=== PATIENT | female | born 1955 | race Caucasian/White ===

== ENCOUNTER → 2016-11-16 | Outpatient (CLI) | payer OTHER | LOC: BMCIMAGING 10:41 | DX: Z12.31 Encounter for screening mammogram for malignant neoplasm of breast (principal); Z80.3 Family history of malignant neoplasm of breast | CPT/HCPCS: G0202 ==

== ENCOUNTER → 2017-05-08 | Outpatient (CLI) | payer OTHER | LOC: BMCIMAGING 16:33 | PROVIDERS: ATTEND Internal Medicine | DX: R00.0 Tachycardia, unspecified (principal) ==

== ENCOUNTER 2017-10-07 11:14 | Observation (INO) | payer OTHER ==
[2017-10-07] MEDS ORDERED: NS 1,000 ML IV ONE (11:21)
--- NOTE | 2017-10-07 11:32 | PDGENHP ---
History & Physical Chief Complaint: symptomatic svt History of Present Illness: symptomatic svt Relevant Physical Exam: [id number] Cardiorespiratory Assessment: symptomatic svt for ablation
--- NOTE | 2017-10-07 11:39 | CPEKG ---
Heart Rate: 75 RR Interval: 800 P-R Interval: 172 QRSD Interval: 88 QT Interval: 408 QTC Interval: 456 P [place]: 9 QRS [place]: -68 T Wave [place]: 57 EKG Severity - ABNORMAL ECG - EKG Impression: SINUS RHYTHM EKG Impression: LEFT ANTERIOR FASCICULAR BLOCK Electronically Signed By: Heraclio Rodriguez 07-Oct-2017 12:59:47
[2017-10-07 11:51] LABS: PLATELET COUNT 354 10^3/uL (150-400)
[2017-10-07 12:00] LABS: INR 0.97 (0.83-1.16); PROTIME(PATIENT) 13.1 SEC (12.0-15.0)
[2017-10-07] MEDS ORDERED: fentaNYL 100 MCG/2 ML INJ IVP PRN (13:14)
[2017-10-07] MEDS ORDERED: ONDANSETRON 4 MG/2 ML VIAL IVP PRN ×2 (13:14→16:06)
[2017-10-07] MEDS ORDERED: NALOXONE HCL 0.4 MG/ML INJ IVP PRN (13:14)
[2017-10-07] MEDS ORDERED: ACETAMINOPHEN 500 MG TAB PO PRN (13:14)
--- NOTE | 2017-10-07 13:14 | PDANEPAE ---
ANE History of Present Illness EP Study ANE Past Medical History - Pulmonary History Hx Sleep Apnea: No ANE Review of Systems Review of Systems: ANE Patient History - Allergies Allergies/Adverse Reactions: No Known Allergies Allergy (Unverified 10/07/17 11:21) - Home Medications Home Medications: Cholecalciferol Vit D3 [Vitamin D3 (*)] 1,000 units PO DAILY 10/05/17 [Last Taken Unknown] Herbals/Supplements -Info Only 1 ea PO DAILY 10/05/17 [Last Taken Unknown] Multivitamins [Multivitamin (*)] 1 each PO DAILY 10/05/17 [Last Taken Unknown] - Smoking Hx Smoking Status: Former smoker ANE Labs/Vital Signs - Labs Result Diagrams: 10/07/17 11:35 10/07/17 11:35 - Vital Signs Height: 162.56 cm Weight: 94.347 kg ANE Physical Exam - Airway Neck exam: FROM Mallampati Score: Class 2 Mouth exam: normal dental/mouth exam - Pulmonary Pulmonary: clear to auscultation - Cardiovascular Cardiovascular: regular rate and rhythym - ASA Status ASA Status: II ANE Anesthesia Plan Anesthesia Plan: general endotracheal anesthesia
[2017-10-07] MEDS ORDERED: ISOPROTERENOL HCL/D5W 0.2 MG/50 ML BAG IV ONE (13:19)
[2017-10-07] MEDS ORDERED: LIDOCAINE 1% 300 MG/30 ML SDV ONE (13:19)
[2017-10-07] MEDS ORDERED: HEPARIN 10,000 UNIT/10 ML MDV (1,000 UNIT/ML) ONE (13:19)
[2017-10-07] MEDS ORDERED: PROPOFOL/EMULSION 500 MG/50 ML BOTTLE IV ONE ×5 (13:28→14:58)
[2017-10-07] MEDS ORDERED: ROCURONIUM 50 MG/5 ML VIAL ONE ×3 (13:32→15:34)
[2017-10-07] MEDS ORDERED: fentaNYL 100 MCG/2 ML INJ ONE (15:33)
[2017-10-07] MEDS ORDERED: ISOPROTERENOL HCL 0.2 MG/ML 5ML AMP ONE (15:45)
[2017-10-07] MEDS ORDERED: SUGAMMADEX SODIUM 200 MG/2 ML VIAL IVP ONE (15:54)
[2017-10-07] MEDS ORDERED: ONDANSETRON 4 MG/2 ML VIAL ONE (15:56)
[2017-10-07] MEDS ORDERED: DEXAMETHASONE 4 MG/ML VIAL ONE (15:56)
[2017-10-07] MEDS ORDERED: PROTAMINE SULFATE 50 MG/5 ML VIAL IVP ONE (16:01)
[2017-10-07] MEDS ORDERED: ACETAMINOPHEN 325 MG TAB PO PRN (16:06)
--- NOTE | 2017-10-07 16:06 | EPPROC ---
Electrophysiology Procedure Note: ELECTROPHYSIOLOGIC STUDY AND CATHETER MEDIATED ABLATION OF FOCAL ATRIAL TACHYCARDIA PROCEDURES PERFORMED: 1. EP evaluation with RA/RV/LA pace/record, with arrhythmia induction 2. EP evaluation with RA/RV pace record, insert/reposition catheter, with arrhythmia induction 3. Intracardiac catheter ablation, SVT arrhythmogenic focus 4. 3D mapping 5. Fluoroscopy INDICATION: Recurrent SVT with presyncope Catheters and anesthesia: The patient arrived in the Electrophysiology Laboratory in the fasting state. The right clavicular region, right groin, and left groin area were prepped and draped in the usual sterile manner. Anesthesiologist Dr. Nael Velasquez administered general anesthesia. Appropriate non-invasive blood pressure, pulse oximetry and end-tidal CO2 monitoring was established. All catheters were placed percutaneously using the modified Seldinger technique , and advanced into position under fluoroscopic guidance. One #7 Canadian Garrett catheter was advanced to the His-bundle position via the left femoral vein (2mm spacing; except the proximal ring which was 25cm from the tip used for unipolar recordings). One #7 [place] deflectable catheter with 10 pairs of electrodes was placed via the left femoral vein into the coronary sinus. Programmed stimulation was performed from the right atrium, left atrium ( coronary sinus) and right ventricle. Parahisian pacing demonstrated all retrograde conduction over the AV node Heparin was administered to keep ACT > 200 seconds. There was no antegrade slow AV nicola pathway conduction. Programmed stimulation of right atrium during infusion of isoproterenol 1-2 mcg/ min induced an atrial tachycardia, CL was variable 350-390 ms. AV dissociation was induced with ventricular overdrive pacing confirming atrial tachycardia. High resolution mapping of the atrial tachycardia was done using Pentaray catheter. Following this, a #7 [place] mapping catheter was introduced into the right atrium and used for mapping AT . SR0 sheath was used. A 3D mapping system (Intrakr) was used. A detailed 3D map of the right atrium and coronary sinus showed earliest atrial activation along the superior aspect of the ela terminalis. Earliest atrial activation began 35 ms before the onset of the P wave with a negative deflection in the unipolar electrogram. RF applications were delivered to this site. This accelerated and then terminated tachycardia. Prior to ablation, pacing at high output was performed to rule out phrenic nerve stimulation. Programmed stimulation in the baseline state and during infusion of isoproterenol 1, 2 and 4 mcg/min post ablation was performed. No tachycardia could be induced. The catheters were removed. Vascular access sheaths were removed in the EP lab after pursestring suture was applied. The patient was transferred to the cardiovascular holding area in stable condition. There were no apparent complications. CONCLUSIONS: 1. Focal atrial tachycardia arising from the superior aspect of the Ela terminalis. 2. Successful ablation of focal atrial tachycardia. 3. No apparent complications. Patient Problems: Problems Problem Status Onset Supraventricular tachycardia Acute
--- NOTE | 2017-10-07 16:12 | POSTANESTH ---
Post Anesthetic Evaluation Cardiovascular Status: Normal, Stable Respiratory Status: Normal, Stable Level of Consciousness/Mental Status: Can Participate in Eval, Alert and Oriented Pain Control: Adequate, Prn Tx Ordered Nausea/Vomiting Control: Adequate, Prn Tx Ordered Complications Possibly Related to Anesthesia: None Noted
--- NOTE | 2017-10-07 16:26 | CPEKG ---
Heart Rate: 82 RR Interval: 732 P-R Interval: 204 QRSD Interval: 90 QT Interval: 396 QTC Interval: 463 P [place]: 62 QRS [place]: -47 T Wave [place]: 44 EKG Severity - ABNORMAL ECG - EKG Impression: SINUS RHYTHM EKG Impression: LAD, CONSIDER LEFT ANTERIOR FASCICULAR BLOCK Electronically Signed By: Heraclio Rodriguez 08-Oct-2017 08:40:28
[2017-10-08 04:24] LABS: PLATELET COUNT 334 10^3/uL (150-400)
[2017-10-08 04:37] LABS: CREATINE KINASE 66 IU/L (0-156)
[2017-10-08 04:43] LABS: INR 1.05 (0.83-1.16); PROTIME(PATIENT) 13.9 SEC (12.0-15.0)
--- NOTE | 2017-10-08 08:44 | CPEKG ---
Heart Rate: 68 RR Interval: 882 P-R Interval: 204 QRSD Interval: 90 QT Interval: 416 QTC Interval: 443 P [place]: -2 QRS [place]: -50 T Wave [place]: 41 EKG Severity - ABNORMAL ECG - EKG Impression: SINUS RHYTHM EKG Impression: LAD, CONSIDER LEFT ANTERIOR FASCICULAR BLOCK Electronically Signed By: Heraclio Rodriguez 08-Oct-2017 12:46:37
[2017-10-08] MEDS ORDERED: ASPIRIN 81 MG CHEWABLE TAB PO SCH (09:00)
--- NOTE | 2017-10-08 09:31 | ASMTCMCOM ---
CM Note CM Note Notes: 10/08/2017 Case Management Note Reviewed chart. There are no case management d/c needs identified dt/ pt age, marital status, employment status and activity levels prior to admission. There are no PT or OT evals ordered at this time. Case Management d/c poc: Anticipating Independent with follow up as directed. Case Management available if needs change. Date Signed: 10/08/2017 09:30 AM Electronically Signed By:Corrine Ann RN
--- NOTE | 2017-10-08 10:26 | ECHO ---
[email or web address] [address] [address] Main: [phone] Fax: Transthoracic Echocardiogram Name: JOSELITO ACOSTA MR#: [id number] Study Date: 10/08/2017 Study Time: 07:57 AM Date of : 1955 Age: 62 year(s) Height: 162.6 cm (64 in.) Weight: 94.35 kg (208 lb.) BSA: 1.99 m2 Gender: Female Examination: Echo Indication: F/U post EP study Image Quality: Contrast: Requested by: Heraclio Rodriguez BP: 129 mmHg/79 mmHg Heart Rate: Rhythm: Indication: F/U post EP study Procedure Staff Clinic Lpn: Kell León RDCS Reading Physician: Heraclio Rodriguez Requesting Provider: Conclusions: Normal size left ventricle. Mild concentric LV hypertrophy. Normal global systolic LV function. The left atrium is mildly dilated. Mild tricuspid regurgitation is present. Measurements: Chambers Valvular Assessment AV/MV Valvular Assessment TV/PV Normal Normal Normal Name Value Range Name Value Range Name Value Range Ao Laurita (2D): 3.2 cm (1.4 cm-2.6 AV meanP mmHg ( - ) cm) MV E Vmax: 0.95 m/s ( - ) IVSd (2D): 0.9 cm (0.6 cm-1.1 MV A Vmax: 1.08 m/s ( - ) cm) MV E/A: 0.88 ( - ) LVDd (2D): 5.0 cm (3.9 cm-5.3 cm) LVDs (2D): 2.8 cm (2.1 cm-4 cm) LVPWd (2D): 0.9 cm ( - ) LVEF (MOD4): 73 % (>=55 %) EF Range: 65-70 % Continued Measurements: Chambers Valvular Assessment AV/MV Name Value Name Value LADs: 3.4 cm MV E' Septal: 0.09 m/s LADs Lon.7 cm MV E/E' Septal: 10.80 LA Area: 24.4 cm2 MV E/E' Lateral: 11.70 Patient: JOSELITO ACOSTA Study Date: 10/08/2017 Page 1 of 2 07:57 AM Findings: Left Ventricle: Normal size left ventricle. Mild concentric LV hypertrophy. Normal global systolic LV function. The ejection fraction is estimated to be 65-70 %. No regional wall motion abnormality. Right Ventricle: Normal size right ventricle. Left Atrium: The left atrium is mildly dilated. Right Atrium: The right atrium is normal in size. Mitral Valve: The mitral valve is normal in appearance and function. Trivial mitral valve regurgitation. Aortic Valve: The aortic valve is normal in appearance and function. The aortic valve is tri-leaflet. Tricuspid Valve: The tricuspid valve is normal in appearance and function. Mild tricuspid regurgitation is present. Pulmonic Valve: The pulmonic valve is normal in appearance and function. Aorta: The aorta is normal. Pericardium: No pericardial effusion. (No Signature Object) Patient: JOSELITO ACOSTA Study Date: 10/08/2017 Page 2 of 2 07:57 AM [id number]
[2017-10-08 11:20] VITALS: BP 100/65; PULSE 73; RESP 12; TEMP 98.2; O2SAT 96
--- NOTE | 2017-10-08 12:36 | ASMTLACE ---
LACE Length of stay for Answers: Less than 1 day current admission Acuity / Level of Answers: No Care: Did the patient have an inpatient admission? # of Emergency department Answers: 0 visits in the last 6 months Date Signed: 10/08/2017 12:36 PM Electronically Signed By:Corrine Ann RN
--- NOTE | 2017-10-08 13:13 | GDS ---
[f rep st] DISCHARGE SUMMARY ADMISSION DIAGNOSIS: Supraventricular tachycardia, symptomatic. DISCHARGE DIAGNOSES: 1. Atrial tachycardia. 2. Successful ablation of focal atrial tachycardia. PROCEDURES PERFORMED: 1. Electrocardiogram. 2. Electrophysiology study, which identified a focal atrial tachycardia arising from the superior as pect of the ela terminalis. 3. Successful ablation of focal atrial tachycardia. 4. Echocardiogram. BRIEF HISTORY: Please see H and P. Briefly, the patient is a 62-year-old female who has recurrent s upraventricular tachycardia with associated presyncope. Her primary bellhop is Dr. Polanco. This was noted off a ZIO monitor. Was noted to rates as high as 182 beats per minute between 5 and 25 sec onds. Patient was referred to Dr. Rodriguez, evaluated patient and previous studies, discussed options and treatments, including medication therapy versus ablation, patient decided to undergo electrophysiolo gy study for further evaluation. HOSPITAL COURSE: Patient was admitted to CVC, prepped for procedure, and taken to the electrophysiol ogy suite. There, Dr. Rodriguez performed electrophysiology study on her. He did identify a focal atrial tachycardia arising from the superior aspect of the ela terminalis. At that point, he switched to ablation, in which he was successfully able to ablate the atrial tachycardia. No complications. Everardo austin was transferred back to the CVC, and ultimately to the PCU for overnight observation. Througho ut the night, she has been maintaining sinus rhythm with occasional premature ventricular contraction . No other malignant arrhythmias or pauses noted. She has been up and walking the unit without any difficulties. She denies any chest pain, shortness of breath. Does report occasional "skipped beat" during PVC. PHYSICAL EXAMINATION: GENERAL APPEARANCE: Today, medium built, mildly obese, female. She is alert, oriented to person, place, time, and situation. Appears to be under no acute distress. C URRENT VITAL SIGNS: Blood pressure of 100/65, heart rate is 73, respirations 12, saturation 96%, tem perature 36.8 degrees Celsius. HEENT: Head is normocephalic, lips and tongue are pink and moist wit h no signs of cyanosis, conjunctivae pink. NECK: Trachea is midline, +2 carotid pulses bilateral, n o auscultated bruits, no jugular vein distention. RESPIRATORY: Lungs clear to auscultation, no rhon chi, rales or wheezes, no accessory muscle use, no intercostal muscle retraction noted. CARDIAC: Re gular rate, regular rhythm, S1, S2, no S3, S4, gallops, rubs or murmur noted. ABDOMEN: Soft, nonten brayden, bowel sounds x4 quadrants, no organomegaly, no palpable masses. SKIN: [place], warm, dry, no cyan osis, no clubbing, no peripheral edema. VASCULAR: +2 carotids bilateral, +2 radials bilateral, +2 d orsal pedal and posterior tibial pulses bilateral. Catheter insertion site, bilateral groin sites, n o redness, swelling, drainage, or bleeding noted at either site, mild ecchymosis around right access site, quarter to 50 cent size. No auscultated bruit noted over either site. LABORATORY STUDIES: Laboratory studies drawn today show WBC of 7.75, hemoglobin of 13.8, hematocrit of 41.4, platelet count 334. INR 1.05. Sodium 143, potassium 4.8, chloride 110, CO2 is 23, BUN 8, creatinine 0.6, glucose 96, calcium 9.1. CK is 66, CK-MB 1.42, troponin of 0.114. Note, expected to have elevated cardiac enzymes status post ablation. STUDIES: Morning electrocardiogram shows sinus rhythm, left axis deviation, no significant ST or T w ave abnormalities. Continuous cardiac monitoring shows occasional premature ventricular contraction. Electrophysiology study and ablation as mentioned above. Echocardiogram done today showing normal LV size, normal global LV systolic function, EF estimated be tween 65% and 70%, LA is mildly dilated, mild TR present, no pericardial effusion. DISCHARGE DISPOSITION: Patient will be discharged home in stable condition. She is under activity r estrictions of not lifting more than 10 pounds for next week and no strenuous activity for the next 2 weeks. DISCHARGE MEDICATIONS: Please see discharge medication reconciliation sheet. Note, Dr. Rodriguez started patient on aspirin therapy of 81 mg p.o. q. day for the next 6 weeks. DISCHARGE INSTRUCTIONS: Post EP procedure/ablation discharge instructions went over with the patient , including activity restrictions, bathing precautions, monitoring for signs of infection, and medica tion compliancy. Patient also been told due to recent ablation, she is at risk for potential thrombu s formation due to hypercoagulation from EP procedure, she will take aspirin therapy as mentioned abo ve, she has also been encouraged for every 35-45 minutes while awake, she is to get up and walk 5-10 minutes for the next 6 weeks. Patient has a followup Holter monitor scheduled October 28, [facility]. Rodriguez on November 07. At the time of discharge, patient verbalizes understanding of all instructions and has no questions o r concerns. She has been told that if any problems or concerns come up post discharge, she is to not hema our office or return to the hospital. Total time spent on discharge: Greater than 30 minutes. Copy requested to: Dr. Polanco, patient primary bellhop /[id number]/MODL
--- NOTE | 2017-10-08 13:35 | ASDISCHSUM ---
Discharge Information Plan Status:Home with No Needs Medically Cleared to Leave:10/07/2017 Discharge Date:10/08/2017 01:32 PM CM D/C Disposition:Home, Routine, Self-Care ADT D/C Disposition:Home, Routine, Self-Care Projected Discharge Date:10/08/2017 01:32 PM Transportation at D/C: Discharge Delay Reason: Follow-Up Date:10/08/2017 01:32 PM Discharge Slot: Final Diagnosis: Placement Information Patient Contact Information Contact Name:CRAIG Relationship:Daughter Address:[address] [place] Work Phone: City:[place] Phone: State/Zip Code:[place] [address] Email: Financial Information Financial Class:[employer] Primary Plan Desc:[facility] Primary Plan Number:[id number] Secondary Plan Desc: Secondary Plan Number: Assessment Information [facility] CM Progress Note CM Note CM Note Notes: 10/08/2017 Case Management Note Reviewed chart. There are no case management d/c needs identified dt/ pt age, marital status, employment status and activity levels prior to admission. There are no PT or OT evals ordered at this time. Case Management d/c poc: Anticipating Independent with follow up as directed. Case Management available if needs change. Date Signed: 10/08/2017 09:30 AM Electronically Signed By:Corrine Ann RN LACE LACDevora Length of stay for Answers: Less than 1 day current admission Acuity / Level of Answers: No Care: Did the patient have an inpatient admission? # of Emergency department Answers: 0 visits in the last 6 months Date Signed: 10/08/2017 12:36 PM Electronically Signed By:Corrine Ann RN Intervention Information
== END 2017-10-08 13:32 | disposition home or self-care (01) ==
LOC: FCATH 11:14 → F2W 15:14
PROVIDERS: ADMIT Internal Medicine Cardiovascular Disease; ATTEND Internal Medicine Cardiovascular Disease
PROC: 02583ZZ Destruction of Conduction Mechanism, Percutaneous Approach (ICD-10-PCS; principal; 2017-10-07)
PROC: 02K83ZZ Map Conduction Mechanism, Percutaneous Approach (ICD-10-PCS; principal; 2017-10-07)
PROC: 5A1213Z Performance of Cardiac Pacing, Intermittent (ICD-10-PCS; principal; 2017-10-07)
PROC: 4A023FZ Measurement of Cardiac Rhythm, Percutaneous Approach (ICD-10-PCS; principal; 2017-10-07)
DX: I47.1 Supraventricular tachycardia (principal); R55 Syncope and collapse
CPT/HCPCS: 93005; 93306; 93613; 93621; 93623; 93653; C1730; C1732; C1893; G0378; C1731; J1100; J1644; J2405; J2704; J2720; J3010

== ENCOUNTER → 2017-11-18 | Outpatient (CLI) | payer OTHER | LOC: BMCIMAGING 08:37 | PROVIDERS: ATTEND Internal Medicine | DX: Z12.31 Encounter for screening mammogram for malignant neoplasm of breast (principal); Z80.3 Family history of malignant neoplasm of breast ==

== ENCOUNTER → 2018-11-19 | Outpatient (CLI) | payer OTHER | LOC: BMCIMAGING 09:03 | PROVIDERS: ATTEND Internal Medicine | DX: Z12.31 Encounter for screening mammogram for malignant neoplasm of breast (principal); Z80.3 Family history of malignant neoplasm of breast ==